=== PATIENT | male | born 1995 | race Two or more races ===

== ENCOUNTER 2024-03-20 13:04 | Emergency (ER) | payer OTHER, MEDICAID, SELFPAY ==
[2024-03-20 13:14] VITALS: PULSE 94; RESP 19; O2SAT 98
[2024-03-20 15:09] VITALS: BP 120/74; PULSE 69; RESP 19; TEMP 36.8; O2SAT 96; BMI 27.6
--- NOTE | 2024-03-20 15:36 | XR_ITS ---
Examination: PA lateral chest 2 views TECHNIQUE: Upright PA lateral chest 2 views Exam date and time: March 20, 2024 1340 hours Comparison April 04, 2023 INDICATIONS: Weakness shortness of breath one week FINDINGS: Normal heart size Lungs are clear. The osseous structures are intact IMPRESSION: No active disease
[2024-03-20 16:24] LABS: Basophils % (Auto) 0 % (0-2.5); Eosinophils # (Auto) 0.4 Thou/mm3 (0.0-0.5); Eosinophils % (Auto) 6 % (0-10); Hematocrit 37.8 % (41.0-53.0); Hemoglobin 13.6 g/dL (13.5-16.0); Immature Granulocytes % (Auto) 0 % (0-0); Immature Granulocytes Auto 0.01 Thou/mm3 (0.00-0.00); Lymphocytes # (Auto) 1.6 Thou/mm3 (1.0-4.8); Lymphocytes % (Auto) 26 % (10-50); Mean Corpuscular Hemoglobin 30.8 pg (25.0-35.0); Mean Corpuscular Volume 86 fL (80-100); Monocytes # (Auto) 0.6 Thou/mm3 (0.0-0.8); Monocytes % (Auto) 10 % (0-12); Neutrophils # (Auto) 3.6 Thou/mm3 (1.8-7.7); Neutrophils % (Auto) 58 % (37-80); Nucleated Red Blood Cell % 0 /100 WBC (0); Platelet Count 274 Thou/mm3 (140-440); RDW Standard Deviation 38.2 fL (35.1-43.9); Red Blood Count 4.41 Miln/mm3 (4.50-5.90); White Blood Count 6.1 Thou/mm3 (3.8-10.6)
[2024-03-20 16:42] LABS: B-Type Natriuretic Peptide 27 pg/mL (0-100)
[2024-03-20 16:44] LABS: Alanine Aminotransferase 13 U/L (10-49); Albumin, Serum 4.7 gm/dL (3.5-5.0); Alkaline Phosphatase 61 U/L (46-116); Anion Gap 9 (7-16); Aspartate Amino Transferase 15 U/L (0-34); BUN/Creatinine Ratio 11 Ratio (12-20); Bilirubin,Total 1.2 mg/dL (0.3-1.2); Blood Urea Nitrogen 10 mg/dL (9-23); Calcium 9.5 mg/dL (8.3-10.6); Calcium (Corrected) 9.5 mg/dL (8.5-10.1); Carbon Dioxide 24.7 mMol/L (20.0-31.0); Chloride 106 mMol/L (98-107); Creatinine (Component) 0.9 mg/dL (0.6-1.3); Estimated Creatinine Clearance 122.6 mL/min (>60); Globulin 2.4 gm/dL (2.3-3.5); Glucose 89 mg/dL (74-106); Lipase 27 U/L (12-53); Osmolality,Calculated 277 (275-295); Potassium 3.4 mMol/L (3.4-5.1); Sodium 140 mMol/L (136-145); Total Protein 7.1 gm/dL (5.7-8.2); Troponin I < 0.002 ng/mL (0.0-0.045); eGFR > 60 See Note
--- NOTE | 2024-03-20 16:58 | EDNOTE_ITS ---
<Statement entered by Junie Hernandez MD - 03/21/24 06:45> As co-signing physician, I was present and available for consult prn. I concur with the plan and care as documented by the midlevel provider. ED General RME/HPI General Chief complaint: General Adult/Misc Complain Stated complaint: METH USE I DON'T FEEL RIGHT Time Seen by Provider: 03/20/24 14:28 Arrival date/time: 03/20/24 13:04 RME / HPI RME / HPI narrative: 28-year-old patient presents emergency department with complaint of meth use. Patient also complains of generalized weakness and chest pain for the past 1 week. Patient states that he was in [facility] senior living for 3 months when he got out 3 months ago he started using meth and he feels that the people he is smoking who HE meth with trying to poison him. He states that he thinks his meds may have been spiked with fentanyl. Related Data Previous Rx's ?Medication ?Instructions ?Recorded benzonatate 100 mg capsule 100 mg PO TID #14 caps 04/04/23 ibuprofen 600 mg tablet 600 mg PO Q6H #30 tabs 04/04/23 Allergies Allergy/AdvReac Type Severity Reaction Status Date / Time amoxicillin Allergy Severe Rash Verified 03/20/24 13:16 Review of Systems Review of Systems Systems Reviewed: All systems reviewed, normal except as documented Constitutional Constitutional: Reports system reviewed and no additional complaints, except as documented Cardiovascular Cardiovascular: Reports system reviewed and no additional complaints, except as documented Respiratory Respiratory: Reports system reviewed and no additional complaints, except as documented Musculoskeletal Musculoskeletal: Reports system reviewed and no additional complaints, except as documented Neurologic Neurologic: Reports system reviewed and no additional complaints, except as documented ED Exam General General appearance: Present alert and in no apparent distress Head Head exam: Present atraumatic and normocephalic ENT ENT exam: Present normal exam and normal oropharynx Chest Chest inspection: Present normal inspection and symmetric chest wall rise Respiratory Respiratory exam: Present normal lung sounds bilaterally Cardiovascular Cardiovascular exam: Present regular rate and normal rhythm Psychiatric Psychiatric exam: Present anxious Skin Skin exam: Present warm Course Quality Measures none Orders Category Date Time Status CXR2 [XR chest 2V] Stat Exams 03/20/24 15:36 Completed BNP [B-Type Natriuretic Peptide] Stat Lab 03/20/24 16:08 Completed CBC Stat Lab 03/20/24 16:08 Completed CMP [Comprehensive Metabolic Panel] Stat Lab 03/20/24 16:08 Completed Lipase Stat Lab 03/20/24 16:08 Completed Troponin I Stat Lab 03/20/24 16:08 Completed Vital Signs Vital signs: Vital Signs Temperature 98.3 F 03/20/24 15:09 Pulse Rate 69 03/20/24 15:09 Respiratory Rate 19 03/20/24 15:09 Blood Pressure 120/74 03/20/24 15:09 Pulse Oximetry (%) 96 03/20/24 15:09 Oxygen Delivery Method Room Air 03/20/24 15:09 [facility] Patient data External records reviewed:: None Clinical information provided by:: patient Social determinants that could affect healthcare access:: none Patient has the following chronic illnesses:: na How is presenting disease/condition affected by chronic disease/condition?: no chronic disease Evaluation data The following diagnostics were reviewed and interpreted by me:: lab results and radiology exam(s) Lab and/or radiology exams considered but not ordered:: considered and ordered Interpretation Summary: na Medications Medications considered but not ordered:: na Medication administrations:: na Consultations Consultation(s) initiated? (list below): No Diagnosis Differential Diagnosis ED Complaint MDM: medical screen Most likely diagnosis given after review of the tests above:: medical screen Admission Indicated Admission indicated?: not indicated Explain why admission is indicated or not indicated:: na Admission Request Was there a request for admission?: No Disposition Plan Disposition Plan: Discharge Discharge Attestation Discharge Attestation: The patient and all family members were given an opportunity to ask questions and understood the discharge instructions. Discharge instructions specifically effects, indications for sooner follow up or return to the emergency department, and the expected course of current diagnosis. Patient condition: Stable Medical Decision Making Differential Diagnosis Differential Diagnosis: medical screen Lab Data 03/20/24 16:08 03/20/24 16:08 Labs: Lab Results 03/20/24 Range/Units 16:08 WBC 6.1 (3.8-10.6) Thou/mm3 RBC 4.41 L (4.50-5.90) Miln/mm3 Hgb 13.6 (13.5-16.0) g/dL Hct 37.8 L (41.0-53.0) % MCV 86 (80-100) fL MCH 30.8 (25.0-35.0) pg MCHC 36.0 (31.0-37.0) g/dl RDW Std Deviation 38.2 (35.1-43.9) fL Plt Count 274 (140-440) Thou/mm3 Neut % (Auto) 58 (37-80) % Lymph % (Auto) 26 (10-50) % Mcminn % (Auto) 10 (0-12) % Eos % (Auto) 6 (0-10) % Baso % (Auto) 0 (0-2.5) % Neut # (Auto) 3.6 (1.8-7.7) Thou/mm3 Lymph # (Auto) 1.6 (1.0-4.8) Thou/mm3 Mcminn # (Auto) 0.6 (0.0-0.8) Thou/mm3 Eos # (Auto) 0.4 (0.0-0.5) Thou/mm3 Baso # (Auto) 0.0 (0.0-0.2) Thou/mm3 Immature Gran # (Auto) 0.01 H (0.00-0.00) Thou/mm3 Absolute Nucleated RBC 0.00 (0.00-0.00) Thou/mm3 Immature Gran % 0 (0-0) % Nucleated RBC % 0 (0) /100 WBC Sodium 140 (136-145) mMol/L Potassium 3.4 (3.4-5.1) mMol/L Chloride 106 (98-107) mMol/L Carbon Dioxide 24.7 (20.0-31.0) mMol/L Anion Gap 9 (7-16) BUN 10 (9-23) mg/dL Creatinine 0.9 (0.6-1.3) mg/dL Estim Creat Clear Calc 122.6 (>60) mL/min eGFR > 60 (60 - ) See Note BUN/Creatinine Ratio 11 L (12-20) Ratio Glucose 89 (74-106) mg/dL Calculated Osmolality 277 (275-295) Calcium 9.5 (8.3-10.6) mg/dL Corrected Calcium 9.5 (8.5-10.1) mg/dL Total Bilirubin 1.2 (0.3-1.2) mg/dL AST 15 (0-34) U/L ALT 13 (10-49) U/L Alkaline Phosphatase 61 (46-116) U/L Troponin I < 0.002 (0.0-0.045) ng/mL B-Natriuretic Peptide 27 (0-100) pg/mL Total Protein 7.1 (5.7-8.2) gm/dL Albumin 4.7 (3.5-5.0) gm/dL Globulin 2.4 (2.3-3.5) gm/dL Albumin/Globulin Ratio 2.0 (1.2-2.2) Lipase 27 (12-53) U/L Discharge Plan Plan Patient Disposition: HOME (Self Care) Prescriptions/Referrals Prescriptions/Med Rec: No Action benzonatate 100 mg capsule 100 mg PO TID Qty: 14 0RF ibuprofen 600 mg tablet 600 mg PO Q6H Qty: 30 0RF Referrals: No Primary/Family,Physician [Primary Care Provider] - In 1 week Problem List Clinical Impression: Viral infection, Encounter for medical screening examination, Methamphetamine dependence Patient/Caregiver Discharge Instructions Education Materials: Understanding Methamphetamine ..., Treating Drug Abuse and Addiction, ED Drug Abuse Print Language: Thai Stand Alone Forms: Sirena Award Info., Patient Portal Info Letter
== END 2024-03-20 17:29 | disposition home or self-care (01) ==
PROVIDERS: Physician Assistant; Emergency Provider Emergency Medicine
DX: F15.20 Other stimulant dependence, uncomplicated (principal); B34.9 Viral infection, unspecified
CPT/HCPCS: 36415; 71046; 80053; 83690; 83880; 84484; 85025; 99283

== ENCOUNTER 2024-03-22 00:57 | Emergency (ER) | payer BC, OTHER, MEDICAID, SELFPAY ==
[2024-03-22 00:59] VITALS: PULSE 86; RESP 18; O2SAT 98
[2024-03-22 01:01] VITALS: BMI 25.8
[2024-03-22 01:13] VITALS: BP 149/62; PULSE 73; RESP 16; TEMP 37; O2SAT 97
--- NOTE | 2024-03-22 01:13 | PD.EDRME ---
Rapid Medical Screening Exam RME Arrival date/time: 03/22/24 00:57 28 year old male present to ED for c/o of hearing voice and speaking help I have greeted and performed a focused initial assessment of this patient. A comprehensive ED assessment and evaluation of the patient, analysis of all test results, and completion of the medical decision making process will be conducted by additional ED providers. Chief Complaint: Psychiatric Symptoms
[2024-03-22 01:55] LABS: Basophils # (Auto) 0.1 Thou/mm3 (0.0-0.2); Basophils % (Auto) 1 % (0-2.5); Eosinophils # (Auto) 0.4 Thou/mm3 (0.0-0.5); Eosinophils % (Auto) 7 % (0-10); Hematocrit 37.8 % (41.0-53.0); Hemoglobin 13.3 g/dL (13.5-16.0); Immature Granulocytes % (Auto) 0 % (0-0); Immature Granulocytes Auto 0.02 Thou/mm3 (0.00-0.00); Lymphocytes # (Auto) 2.3 Thou/mm3 (1.0-4.8); Lymphocytes % (Auto) 34 % (10-50); Mean Corpuscular HGB Conc 35.2 g/dl (31.0-37.0); Mean Corpuscular Hemoglobin 30.2 pg (25.0-35.0); Mean Corpuscular Volume 86 fL (80-100); Monocytes # (Auto) 0.6 Thou/mm3 (0.0-0.8); Monocytes % (Auto) 8 % (0-12); Neutrophils # (Auto) 3.4 Thou/mm3 (1.8-7.7); Neutrophils % (Auto) 50 % (37-80); Nucleated Red Blood Cell % 0 /100 WBC (0); Platelet Count 314 Thou/mm3 (140-440); RDW Standard Deviation 38.6 fL (35.1-43.9); White Blood Count 6.8 Thou/mm3 (3.8-10.6)
[2024-03-22 02:14] LABS: Alcohol, Blood Medical < 3.0 mg/dL (0-10.0); Anion Gap 7 (7-16); BUN/Creatinine Ratio 10 Ratio (12-20); Blood Urea Nitrogen 9 mg/dL (9-23); Calcium 9.5 mg/dL (8.3-10.6); Carbon Dioxide 28.9 mMol/L (20.0-31.0); Chloride 105 mMol/L (98-107); Creatinine (Component) 0.9 mg/dL (0.6-1.3); Estimated Creatinine Clearance 113.2 mL/min (>60); Glucose 94 mg/dL (74-106); Osmolality,Calculated 279 (275-295); Potassium 3.8 mMol/L (3.4-5.1); Sodium 141 mMol/L (136-145); eGFR > 60 See Note
[2024-03-22 02:14] LABS: Amphetamine/Methamp Scrn,U Positive (Negative); Barbiturate Screen,Urine Negative (Negative); Benzodiazepines Screen,Urine Negative (Negative); Benzoylecgonine Screen, Ur Negative (Negative); Fentanyl Screen,Urine Negative (Negative); Opiate Screen,Urine Negative (Negative); THC Screen,Urine Negative (Negative)
--- NOTE | 2024-03-22 05:08 | PC.NURSE ---
Pt still in lobby. Laying down. Has been sleeping on and off.
--- NOTE | 2024-03-22 07:05 | PD.EDPSYCH ---
ED Psych RME/HPI General Chief Complaint: Psychiatric Symptoms Stated Complaint: HEARING VOICES Time Seen by Provider: 03/22/24 07:22 Arrival date/time: 03/22/24 00:57 RME / HPI RME / HPI Narrative: 03/22/24 00:57 28 year old male present to ED for c/o of hearing voice and speaking help I have greeted and performed a focused initial assessment of this patient. A comprehensive ED assessment and evaluation of the patient, analysis of all test results, and completion of the medical decision making process will be conducted by additional ED providers. DR. VIKKI ROGERS ED EVALUATION: 28 year old male presents to the Emergency Department [facility] with complaint of auditory hallucinations. He states he hears voices for about 2 weeks, they just say random things . Symptoms are moderate. He states he went to retirement for 3-4 years and then got out and has been using methamphetamine since 2019. No homicidal ideation. He states he has been thinking of hurting himself, but no plan. PMHx: Schizophrenia, bipolar disorder. Social Hx: Methamphetamine abuse Related Data Previous Rx's ?Medication ?Instructions ?Recorded benzonatate 100 mg capsule 100 mg PO TID #14 caps 04/04/23 ibuprofen 600 mg tablet 600 mg PO Q6H #30 tabs 04/04/23 Allergies Allergy/AdvReac Type Severity Reaction Status Date / Time amoxicillin Allergy Severe Rash Verified 03/20/24 13:16 Review of Systems Review of Systems Systems Reviewed: All systems reviewed, normal except as documented Narrative Review of Systems: GEN: No fever, no chills, no weight loss EYES: No discharge, no visual changes, no pain HEENT: No ear pain, no congestion, no sore throat PULM: No shortness of breath, no cough, no congestion CV: No chest pain, no dyspnea on exertion, no palpitations GI: No nausea, no vomiting, no diarrhea, no pain, no constipation : No frequency, no urgency and no dysuria MUSC/SKEL: No joint pain, no back pain SKIN: No rash PSYCH: + auditory hallucinations, no depression, + suicidal ideation (no plan), no homicidal ideation HEME/LYMPH: No easy bleeding or bruising tendencies NEURO: No weakness, no headache Past Medical History Past Medical History PSYCHO/SOCIAL: Positive Schizophrenia and Bipolar Disorder Social History SMOKING STATUS: Never smoker SUBSTANCE USE: methamphetamine ALCOHOL: Never ED Exam Narrative Physical exam: GENERAL APPEARANCE: Well hydrated, well nourished, in no acute distress. Mumbling at times, sometimes hard to understand. VITALS: All vitals were reviewed and the pulse ox is 97% on room air which is normal according to my interpretation. HEENT: Normocephalic, atramatic, EOMI, EACs are patent. There is no bulge or retraction. Throat without erythema or exudate. Moist oromucosa. No jaundice NECK: Supple, no JVD or bruits. CARDIOVASCULAR: Heart regular without S3-S4 or murmur. No rubs or gallops. LUNGS/CHEST: Clear to auscultation bilaterally. No rales, rhonchi, or wheezing. Normal inspection. ABDOMEN: Soft, nontender, with normal bowel sounds. No pulsatile masses. No rebound, rigidity, or guarding. No incarcerated hernia. Normal inspection and palpation. EXTREMITIES: No edema, clubbing, or cyanosis. Intact CSM. Normal inspection and palpation. SKIN: Warm and dry without rashes. Normal inspection. MUSCULOSKELETAL: No gross deformity, full ROM all extremities. Normal inspection. NEURO: Alert and oriented x3. Cranial nerves II through XII grossly intact. There are no other motor or sensory deficits noted. PSYCHIATRIC: reports suicidal ideation, but no plan Course Quality Measures none Orders Category Date Time Status Miscellaneous Nursing Order NOW Care 03/22/24 07:22 Completed Diet Regular Diet 03/22/24 Lunch Active Alcohol, Blood Medical Stat Lab 03/22/24 01:47 Completed Basic Metabolic Panel Stat Lab 03/22/24 01:47 Completed CBC Stat Lab 03/22/24 01:47 Completed Drug Screen,Urine Stat Lab 03/22/24 01:29 Completed Reevaluation(s) Reevaluation #1: Mental health placed the patient on a 5150 hold. Time: 08:45 Reevaluation #2: Accepted to [facility]. Time: 11:50 Vital Signs Vital signs: Vital Signs Temperature 98.6 F 03/22/24 01:13 Pulse Rate 73 03/22/24 01:13 Respiratory Rate 16 03/22/24 01:13 Blood Pressure 149/62 H 03/22/24 01:13 Pulse Oximetry (%) 97 03/22/24 01:13 Oxygen Delivery Method Room Air 03/22/24 01:13 Psych MDM Narrative MDM Narrative:: I, Eliza Shepherd, am scribing for and in the presence of Dr. Sanz. CBC unremarkable. BMP is negative. Drug screen is positive for methamphetamine. Alcohol level is less than 3. The patient does have a history of schizophrenia. He has been doing methamphetamine on and off since the age of 17. And he has been hallucinating with some amphetamine before. So this is not new. However the patient does claim with suicidal idea. He does not have any plan. 7:19 AM, the patient is medically cleared to be seen by mental health\manager social. And I am notifying the head Nurse Katie to call mental health to evaluate the patient 8:45 AM: [facility] health placed the patient on a 5150 hold. 1150 AM: Accepted to [facility]. by . Thank you very much. The patient is stable for transfer Patient data External records reviewed:: [facility] previous records (Reviewed last ED visit dated 03/20/24, discharged with the following: Encounter for medical screening examination.) and EMS form Clinical information provided by:: patient and EMS Social determinants that could affect healthcare access:: substance use (methamphetamine) Patient has the following chronic illnesses:: Schizophrenia, bipolar disorder How is presenting disease/condition affected by chronic disease/condition?: caused by Evaluation data The following diagnostics were reviewed and interpreted by me:: lab results Lab and/or radiology exams considered but not ordered:: none Interpretation Summary: See above under MDM narrative. Medications / Prescriptions Medications or Prescriptions considered but not ordered:: none Medication administrations:: see above if any Consultations Consultation(s) initiated? (list below): No Diagnosis Psych Differential Diagnosis: chronic schizophrenia, suicidal ideation, bipolar disorder, drug-induced psychotic disorder and other Most likely diagnosis given after review of the tests above:: Suicidal ideation Acute psychosis Methamphetamine abuse Admission Indicated Admission indicated?: not indicated Admission Request Was there a request for admission?: No Disposition Plan Disposition Plan: Transfer (psychiatric facility) Discharge Plan Plan Patient Disposition: [facility] Disposition Comment: accepted at [facility] in [facility] Patient condition on transfer: Stable Prescriptions/Referrals Prescriptions/Med Rec: No Action benzonatate 100 mg capsule 100 mg PO TID Qty: 14 0RF ibuprofen 600 mg tablet 600 mg PO Q6H Qty: 30 0RF Referrals: No Primary/Family,Physician [Primary Care Provider] - In 1 week Problem List Clinical Impression: Acute psychosis, Suicidal ideation, Methamphetamine abuse Patient/Caregiver Discharge Instructions Print Language: Sao Tomean Stand Alone Forms: Sirena Award Info., Patient Portal Info Letter
--- NOTE | 2024-03-22 08:57 | PC.CC ---
Patient is a 28 year-old male BIBA to the [facility] for mental health evaluation due to auditory hallucinations and delusions. LONDONWJerman made bupu-ns-rroe contact with patient to complete assessment. ASW?s introduced self, role, and reason for assessment to patient. ASW disclosed limits of confidentiality as well. Patient appeared alert and oriented to self, place, and situation. Patient is actively having auditory hallucination and delusions. Patient reports he has been hearing his mother crying and screaming. Patient reports visual hallucinations and states, ?I can see through all people.? Patient denied suicidal and homicidal ideations. Patient disclosed he had two past suicide attempts two years ago one by jumping out of a moving vehicle and the other by hanging himself. Patient has a mental health diagnosis of Schizophrenia and Bipolar, but is not compliant with mental health services and psychotropic medication. Patient reports he has been on multiple 5150-holds but was unable to provide when the last time was. ASW explored with the patient safety planning and patient expressed he wants to have an evaluation by a psychiatrist. Patient reports to methamphetamine use two days ago. The following information is collateral information from patient?s mother, Ambika Llanes [phone]. Patient?s mother reports the patient has been actively having auditory hallucinations and delusions as he thinks he has a virus that is going to kill everyone and infect them. The patient does not believe his family is his actual family and has been saying they are someone else. Per mother, the patient was in a moving vehicle with her and he began to scream at her and would not put his seat belt on and began to make suicidal statements. Upon clinical consultation with [employer], Cheryl Desai patient will be placed on a 5150-hold for Danger to Self. Patient is unwilling/unable to provide a viable safety plan. ASW, provided advisement of 5150-hold to patient. Dr. Sanz, shoe repair supervisor Lanise, and bedside SHERRI Dunham provided update of LPS placement discharge plan. ASW to [facility].
[2024-03-22 09:19] VITALS: BP 145/79; PULSE 58; O2SAT 99
[2024-03-22 10:08] VITALS: BP 133/83; PULSE 57; RESP 18; TEMP 36.8; O2SAT 99
[2024-03-22 11:38] VITALS: RESP 18
--- NOTE | 2024-03-22 11:38 | PC.CC ---
Jalyn with [facility] provided accepting information. Dr. Mcbride is accepting patient and patient will be going to [address]. ASW provided accepting information to patient. ASW arranging transportation. Dr. Sanz, travel pta Lanise, and SHERRI Dunham provided with discharge plan to [facility].
--- NOTE | 2024-03-22 12:41 | PC.NURSE ---
ems here to transfer pt to [facility].
== END 2024-03-22 12:50 ==
PROVIDERS: Physician Assistant; Emergency Provider Emergency Medicine
DX: F23 Brief psychotic disorder (principal); R45.851 Suicidal ideations; F15.10 Other stimulant abuse, uncomplicated
CPT/HCPCS: 36415; 80048; 80307; 80320; 85025; 90839; 96127; 99285; G0480